=== PATIENT | female | born 1955 | race Caucasian/White ===

== ENCOUNTER 2018-04-26 12:19 | Outpatient (REF) | payer OTHER, SELFPAY ==
[2018-04-26 13:39] LABS: COMMENT (LAB VIEW ONLY) 25.34 mg/dL
== END 2018-04-26 12:39 ==
LOC: NCHCN 12:19
PROVIDERS: PCP Family Medicine; Visit Provider Family Medicine
DX: E11.65 Type 2 diabetes mellitus with hyperglycemia (principal)
CPT/HCPCS: 82043; 82570

== ENCOUNTER 2018-12-27 13:16 | Outpatient (REF) | payer MEDICARE, OTHER, SELFPAY ==
--- NOTE | 2018-12-27 12:00 | PAPFT_PTH ---
PATIENT: Krystal Santo LOC: [facility] U#:[id number] AGE/SX: 63/F ROOM: RE12/27/[address]: Amy Morales : 1955 BED: DIS: 12/27/2018 SPEC #: [id number] RECD: 12/27/18 18:09 STATUS: LAY REDimas #: [id number] OLIVIA: 12/27/18 12:[address]: Amy Morales DEPT: [facility] Cytology RECD BY: Dana Singh Tissues: 1 - CX/ENDOCX FOR PAP SMEARS Procedures: PAP THIN PREP/[facility] Screening HPV DNA PROBE Comments: [id number]
[2018-12-27 18:43] LABS: HCT 32.7 % (36.0-46.0); Mean Corp. HGB Concentration 33.6 g/dL (32.0-36.0); Mean Corpuscular Hemoglobin 30.1 pg (27.0-33.0); Mean Corpuscular Volume 89.6 fL (80-95); Mean Platelet Volume 12.1 fL (8.0-11.0); Platelet Count 321 x1000/uL (130-400); RBC 3.65 m/cumm (4.00-5.20); RBC Distribution Width 12.1 % (11.7-14.6); White Blood Cell Count 6.57 k/cumm (4.4-10.8)
[2018-12-27 19:31] LABS: ALT 29 U/L (12-78); AST 19 U/L (15-37); Albumin 3.8 g/dL (3.4-5.0); Alkaline Phosphatase 77 U/L (46-116); Anion Gap 11.5 mmol/L (3-11); BUN 28 mg/dL (7-18); Bilirubin, Total 0.3 mg/dL (0.2-1.0); CO2 24.5 mmol/L (21.0-32.0); CREATININE 1.42 mg/dL (0.55-1.02); Calcium 9.4 mg/dL (8.5-10.1); Chloride 95 mmol/L (98-107); Estimated GFR 37.13 (mL/min/1.73m2); Ferritin 39 ng/mL (8-388); Glucose 223 mg/dL (70-100); Potassium 5.2 mmol/L (3.5-5.1); Sodium 131 mmol/L (136-145); Total Protein 7.5 g/dL (6.4-8.2)
[2018-12-27 20:00] LABS: Vitamin B12 > 2000 pg/mL (193-986)
== END 2018-12-27 13:36 ==
LOC: NCHCN 13:16
PROVIDERS: PCP Family Medicine; Visit Provider Family Medicine
DX: D50.9 Iron deficiency anemia, unspecified (principal); I10 Essential (primary) hypertension; E11.319 Type 2 diabetes mellitus with unspecified diabetic retinopathy without macular edema; Z12.4 Encounter for screening for malignant neoplasm of cervix; Z11.51 Encounter for screening for human papillomavirus (HPV)
CPT/HCPCS: 80053; 85027; 88142; 82607; 82728; 87624

== ENCOUNTER 2019-03-23 10:04 | Outpatient (REF) | payer MEDICARE, BC, SELFPAY ==
[2019-03-23 19:57] LABS: COMMENT (LAB VIEW ONLY) 63.82 mg/dL; Microalb ug/mg Crea 16.8 ug/mg Cr
== END 2019-03-23 10:24 ==
LOC: NCHCN 10:04
PROVIDERS: PCP Family Medicine; Visit Provider Family Medicine
DX: E11.319 Type 2 diabetes mellitus with unspecified diabetic retinopathy without macular edema (principal)
CPT/HCPCS: 82043; 82570

== ENCOUNTER 2019-04-14 01:04 | Outpatient (CLI) | payer MEDICARE, BC, SELFPAY ==
--- NOTE | 2019-04-14 13:42 | DI.MAMMO_ITS ---
EXAM: MAMMO SCREENING CLINICAL HISTORY: SCREENING, Z12.39. TECHNIQUE: Mammograms were interpreted according to the usual protocol including computer analysis with CAD system, tomosynthesis and C-view imaging. FINDINGS: The breast tissue is heterogeneously radiodense which lowers the sensitivity of the study. There is no dominant mass. There are no suspicious calcifications. IMPRESSION: No evidence of malignancy, category 1. Annual screening mammography is recommended. Breast density, C ategory B.Review of prior images reveals no significant interval change. BI-RADS Cat 1 - Negative. Breast Density - Category B - Scattered areas of fibroglandular density.
== END 2019-04-14 01:24 ==
PROVIDERS: PCP Family Medicine; Visit Provider Family Medicine
DX: Z12.31 Encounter for screening mammogram for malignant neoplasm of breast (principal)
CPT/HCPCS: 77063; 77067

== ENCOUNTER 2019-04-26 00:31 | Outpatient (CLI) | payer MEDICARE, BC, SELFPAY ==
--- NOTE | 2019-04-26 11:27 | DI.NM_ITS ---
APPROVED REPORT Exam: Exercise Treadmill Patient Location: Out-Patient Room/Bed: Stress Nurse: Sudha Mackay RN Rhythm: Sinus rhythm, borderline short WI interval Indications: Reason for visit: Progressively SOB symtoms since this past summer. Intermittent chest t ightness at rest and with activiity pt associates this with anxiety. Pt's brother from a Viraj cardial Infarction at the age of 68 years. Medical History Medications: Lisinopril. Pravastatin. Aspirin. Metformin. Fish Oil. Amlodipine. Chlorthalidone. Allergies: No known drug allergies Cardiac Risk Factors: Hyperlipidemia, Diabetes (non-insulin) Exercise History: Occasional walks, recent decline in exercise due to Sciatica pain. Stress Test Details Test: Exercise stress testing was performed using a Lee protocol. Rest Isotope: Tc-99m Sestamibi. Dose: 10.6 Date: 04/26/2019 Injection Time: 0845 Stress Isotope: Tc-99m Sestamibi. Dose: 31.8 Date: 04/26/2019 Injection Time: 1050 HR Resting HR: 83 bpm Max Heart Rate (APMHR): 154 bpm Max HR Achieved: 158 bpm Target HR (85% APMHR): 130 bpm % of APMHR: 102 HR response to stress: Normal HR response to stress BP Resting BP: 150/60 mmHg BP response to stress: Normal blood pressure response to stress. ECG Resting ECG: Sinus Rhythm, borderline short WI interval Stress ECG: Sinus Tachycardia ST Change: Horizontal 1-2mm ST depression Arrhythmia: VPC's Recovery ECG: Sinus Rhythm Recovery ST Change: Upsloping ST depression in leads V3, V4 and V5 during peak exercise and into imme diate recovery. Clinical Reason for Termination: Maximal effort Stress Symptoms: none Highest Stage Achieved: Stage 2: 2.5 mph at 12% grade. Exercise capacity: 7.05 METs Overall Exercise Capacity for Age: Average Stress ECG Conclusion 1. Normal hemodynamic response to pharmacologic stress. 2. The imaging portion of the study was normal. 3. During exercise the patient developed [address] depressions in the lateral leads. 4. Patient did not have symptoms during the study and had moderate exercise capacity. 5. Discordant findings between EKG and imaging though likely represents a negative study. No prior study available for comparison. Test Summary supine 83 150/60 Standing 87 160/64 1 148 170/84 2 156 1 min recovery 158 192/68 3 min recovery 105 170/58 6 min recovery 92 142/60
== END 2019-04-26 00:51 ==
PROVIDERS: PCP Family Medicine; Visit Provider Family Medicine
DX: R07.89 Other chest pain (principal); R06.02 Shortness of breath; E78.5 Hyperlipidemia, unspecified; E11.9 Type 2 diabetes mellitus without complications; Z82.49 Family history of ischemic heart disease and other diseases of the circulatory system
CPT/HCPCS: 78452; 93016; 93018; 93017

== ENCOUNTER 2019-05-10 01:39 | Outpatient (CLI) | payer MEDICARE, BC, SELFPAY ==
--- NOTE | 2019-05-10 16:36 | DI.DEXA_ITS ---
EXAM: XR DEXA BONE DENSITY W/WO GABY INDICATION: POST MENOPAUSAL Z78.0, PREVENTIVE HEALTH CARE Z00.00. TECHNIQUE: 2D digital imaging was performed. FINDINGS: The GABY image shows no evidence of compression fracture. The bone mineral density measurements of t he lumbar spine correspond to a total T-score -0.8, in the normal range. The bone mineral measuremen ts of the left hip correspond to a total T-score of -1.1 and a femoral neck T-score of -1.2, in the o steopenic range. The bone mineral density measurements of the left forearm correspond to a total T-s core of -0.7, in the normal range. IMPRESSION: Normal bone mineral density of the lumbar spine and left wrist. Osteopenia of the left hip.
== END 2019-05-10 01:59 ==
PROVIDERS: PCP Family Medicine; Visit Provider Family Medicine
DX: M85.88 Other specified disorders of bone density and structure, other site (principal); Z78.0 Asymptomatic menopausal state
CPT/HCPCS: 77080

== ENCOUNTER 2022-12-11 12:46 | Outpatient (REF) | payer MEDICARE, BC, SELFPAY ==
[2022-12-11 15:44] LABS: Anion Gap 15.6 mmol/L (3-11); BUN 30 mg/dL (7-18); CO2 21.4 mmol/L (21.0-32.0); CREATININE 1.5 mg/dL (0.55-1.02); Calcium 9.8 mg/dL (8.5-10.1); Calculated LDL 111 mg/dL (<100); Chloride 102 mmol/L (98-107); Cholesterol 245 mg/dL (<200); Estimated GFR 37.49 (mL/min/1.73m2); Glucose 222 mg/dL (74-106); HDL Cholesterol 95 mg/dL (40-60); Potassium 5.3 mmol/L (3.5-5.1); Sodium 139 mmol/L (136-145); Triglyceride 195 mg/dL (<150); Vitamin B12 1267 pg/mL (193-986)
== END 2022-12-11 12:47 | disposition home or self-care (01) ==
LOC: NCHCN 12:46
PROVIDERS: PCP Family Medicine; Visit Provider Family Medicine
DX: D50.9 Iron deficiency anemia, unspecified (principal); E78.5 Hyperlipidemia, unspecified; E11.65 Type 2 diabetes mellitus with hyperglycemia; M85.88 Other specified disorders of bone density and structure, other site; E53.8 Deficiency of other specified B group vitamins
CPT/HCPCS: 80048; 80061; 82306; 82607

== ENCOUNTER 2023-03-13 12:19 | Outpatient (REF) | payer MEDICARE, BC, SELFPAY ==
[2023-03-13 16:00] LABS: HCT 35.3 % (36.0-46.0); HGB 11.7 g/dL (11.2-15.7); MCH 30.7 pg (27.0-33.0); MCHC 33.1 % (32.0-36.0); MCV 93 fL (80-95); RBC 3.81 10^6/uL (3.93-5.22); RDW 12.4 % (11.7-14.6); RDW-SD 42.2 fL; WBC 5.95 10^3/uL (4.4-10.8)
[2023-03-13 16:41] LABS: Iron 79 ug/dL (50-170); Total Iron Binding Capacity 450 ug/dL (250-450); Transferrin Sat 18 % (15-50)
[2023-03-13 16:45] LABS: ALT 23 U/L (14-59); AST 22 U/L (15-37); Albumin 3.9 g/dL (3.4-5.0); Alkaline Phosphatase 82 U/L (46-116); Anion Gap 14.8 mmol/L (3-11); BUN 32 mg/dL (7-18); Bilirubin, Total 0.3 mg/dL (0.2-1.0); CO2 20.2 mmol/L (21.0-32.0); CREATININE 1.4 mg/dL (0.55-1.02); Calcium 9.9 mg/dL (8.5-10.1); Chloride 102 mmol/L (98-107); Estimated GFR 40.73 (mL/min/1.73m2); Glucose 330 mg/dL (74-106); Potassium 5.3 mmol/L (3.5-5.1); Sodium 137 mmol/L (136-145)
[2023-03-13 16:52] LABS: Platelet Count 256 10^3/uL (130-400)
== END 2023-03-13 12:20 | disposition home or self-care (01) ==
LOC: NCHCN 12:19
PROVIDERS: PCP Family Medicine; Visit Provider Family Medicine
DX: D50.9 Iron deficiency anemia, unspecified (principal); N18.31 Chronic kidney disease, stage 3a
CPT/HCPCS: 80053; 85027; 83540; 83550

== ENCOUNTER 2023-04-30 21:26 | Outpatient (REF) | payer MEDICARE, BC, SELFPAY ==
[2023-04-30 22:28] LABS: Vitamin D 25 Total 54.5 ng/mL (30-100)
[2023-04-30 22:31] LABS: Anion Gap 11.5 mmol/L (3-11); BUN 36 mg/dL (7-18); CO2 23.5 mmol/L (21.0-32.0); CREATININE 1.5 mg/dL (0.55-1.02); Calcium 9.9 mg/dL (8.5-10.1); Chloride 98 mmol/L (98-107); Estimated GFR 37.26 (mL/min/1.73m2); Glucose 319 mg/dL (74-106); Potassium 4.3 mmol/L (3.5-5.1); Sodium 133 mmol/L (136-145); Vitamin B12 475 pg/mL (193-986)
== END 2023-04-30 21:27 | disposition home or self-care (01) ==
LOC: NCHCN 21:26
PROVIDERS: PCP Family Medicine; Visit Provider Family Medicine
DX: N18.30 Chronic kidney disease, stage 3 unspecified (principal); I12.9 Hypertensive chronic kidney disease with stage 1 through stage 4 chronic kidney disease, or unspecified chronic kidney disease; E87.5 Hyperkalemia
CPT/HCPCS: 80048; 82306; 82607

== ENCOUNTER 2023-05-20 18:25 | Outpatient (REF) | payer MEDICARE, BC, SELFPAY ==
[2023-05-20 16:31] LABS: BUN 27 mg/dL (7-18); CREATININE 1.3 mg/dL (0.55-1.02); Calcium 9.8 mg/dL (8.5-10.1); Chloride 100 mmol/L (98-107); Estimated GFR 44.24 (mL/min/1.73m2); Glucose 343 mg/dL (74-106); Potassium 5.1 mmol/L (3.5-5.1); Sodium 138 mmol/L (136-145)
== END 2023-05-20 18:26 | disposition home or self-care (01) ==
LOC: NCHCN 18:25
PROVIDERS: PCP Family Medicine; Visit Provider Family Medicine
DX: I10 Essential (primary) hypertension (principal)
CPT/HCPCS: 80048

== ENCOUNTER 2023-12-09 15:58 | Outpatient (REF) | payer MEDICARE, BC, SELFPAY ==
[2023-12-09 14:49] LABS: Anion Gap 12.8 mmol/L (3-11); BUN 33 mg/dL (7-18); CO2 24.2 mmol/L (21.0-32.0); CREATININE 1.1 mg/dL (0.55-1.02); Calcium 9.6 mg/dL (8.5-10.1); Chloride 103 mmol/L (98-107); Creatine Kinase 62 U/L (26-192); Estimated GFR 54.06 (mL/min/1.73m2); Glucose 177 mg/dL (74-106); Potassium 4.6 mmol/L (3.5-5.1); Sodium 140 mmol/L (136-145)
== END 2023-12-09 15:59 | disposition home or self-care (01) ==
LOC: NCHCN 15:58
PROVIDERS: PCP Family Medicine; Visit Provider Family Medicine
DX: E11.9 Type 2 diabetes mellitus without complications (principal); M79.18 Myalgia, other site
CPT/HCPCS: 80048; 82550

== ENCOUNTER 2024-03-09 12:44 | Outpatient (REF) | payer MEDICARE, BC, SELFPAY ==
[2024-03-09 21:21] LABS: BUN 34 mg/dL (7-18); CREATININE 1.2 mg/dL (0.55-1.02); Chloride 102 mmol/L (98-107); Glucose 210 mg/dL (74-106); Potassium 5.1 mmol/L (3.5-5.1); Sodium 138 mmol/L (136-145)
== END 2024-03-09 12:45 | disposition home or self-care (01) ==
LOC: NCHCN 12:44
PROVIDERS: PCP Family Medicine; Visit Provider Family Medicine
DX: E11.9 Type 2 diabetes mellitus without complications (principal); I10 Essential (primary) hypertension
CPT/HCPCS: 80048

== ENCOUNTER 2024-05-23 16:31 | Outpatient (REF) | payer MEDICARE, BC, SELFPAY ==
[2024-05-23 21:16] LABS: Anion Gap 15.7 mmol/L (3-11); BUN 16 mg/dL (7-18); CO2 24.3 mmol/L (21.0-32.0); CREATININE 1.1 mg/dL (0.55-1.02); Calcium 9.9 mg/dL (8.5-10.1); Chloride 101 mmol/L (98-107); Estimated GFR 53.72 (mL/min/1.73m2); Glucose 150 mg/dL (74-106); Sodium 141 mmol/L (136-145)
== END 2024-05-23 16:32 | disposition home or self-care (01) ==
LOC: NCHCN 16:31
PROVIDERS: PCP Family Medicine; Visit Provider Family Medicine
DX: I10 Essential (primary) hypertension (principal)
CPT/HCPCS: 80048

== ENCOUNTER 2024-12-06 15:56 | Outpatient (REF) | payer MEDICARE, BC, SELFPAY ==
[2024-12-06 18:30] LABS: Anion Gap 12.9 mmol/L (3-11); BUN 22 mg/dL (7-18); CO2 24.1 mmol/L (21.0-32.0); Calcium 9.3 mg/dL (8.5-10.1); Calculated LDL 164 mg/dL (<100); Chloride 102 mmol/L (98-107); Cholesterol 276 mg/dL (<200); Estimated GFR 60.23 (mL/min/1.73m2); Glucose 241 mg/dL (74-106); HDL Cholesterol 85 mg/dL (>or=50); Potassium 4.7 mmol/L (3.5-5.1); Sodium 139 mmol/L (136-145); Triglyceride 135 mg/dL (<150)
== END 2024-12-06 15:57 | disposition home or self-care (01) ==
LOC: NCHCN 15:56
PROVIDERS: PCP Family Medicine; Visit Provider Family Medicine
DX: I10 Essential (primary) hypertension (principal)
CPT/HCPCS: 80048; 80061